=== PATIENT | male | born 1970 | race Caucasian/White ===

== ENCOUNTER → 2017-06-17 | Outpatient (CLI) | payer BC | LOC: COL.RAD 13:51 | DX: M25.552 Pain in left hip (principal) | CPT/HCPCS: J3301; Q9967 ==

== ENCOUNTER → 2017-07-26 | Outpatient (CLI) | payer BC | LOC: COL.RAD 13:08 | DX: M25.552 Pain in left hip (principal); M87.852 Other osteonecrosis, left femur; M70.62 Trochanteric bursitis, left hip; M25.852 Other specified joint disorders, left hip; M24.152 Other articular cartilage disorders, left hip | CPT/HCPCS: A9585; Q9967 ==

== ENCOUNTER → 2017-08-30 | Outpatient (CLI) | payer BC | LOC: COL.LAB 11:10 | DX: Z01.812 Encounter for preprocedural laboratory examination (principal); M25.852 Other specified joint disorders, left hip ==